=== PATIENT | male | born 1975 | race Caucasian/White ===

== ENCOUNTER 2019-06-06 11:36 | Emergency (ER) | payer OTHER ==
[2019-06-06 12:27] VITALS: BP 143/79; PULSE 76; TEMP 98.7; BMI 56.6
[2019-06-06] MEDS ORDERED: IBUPROFEN 600 MG TABLET (FP) PO ONE ×2 (12:34→12:38)
--- NOTE | 2019-06-06 13:43 | PDOC ---
History of Present Illness - General Chief Complaint: Pain Stated Complaint: LT FOOT PAIN Time Seen by Provider: 06/06/19 11:59 History Source: Patient Exam Limitations: No Limitations - History of Present Illness Initial Comments: 06/06/19 13:43 43 yo M w/ a h/o HLD, BPH, GERD comes in c/o 2 days of left heel pain. Nothing makes the pain better, it is worse with ambulation. Denies trauma/fall. He says that he has been wearing new shoes recently. No ankle/knee pain, no other complaints today. Pt has not taken any pain meds. Past History - Past Medical History Allergies/Adverse Reactions: Allergies Allergy/AdvReac Type Severity Reaction Status Date / Time No Known Allergies Allergy Verified 06/06/19 11:50 Home Medications: Ambulatory Orders Ibuprofen 600 mg PO TID 3 Days #15 tablet 06/06/19 COPD: No - Suicide/Smoking/Psychosocial Hx Smoking History: Unknown if ever smoked Have you smoked in the past 12 months: No Information on smoking cessation initiated: No Hx Alcohol Use: No Drug/Substance Use Hx: No Review of Systems - Review of Systems Able to Perform ROS?: Yes Constitutional: No: Chills, Fever, Malaise, Night Sweats HEENTM: No: Eye Pain, Recent change in vision, Throat Pain Respiratory: No: Cough, Shortness of Breath Cardiac (ROS): No: Chest Pain, Palpitations, Chest Tightness ABD/GI: No: Diarrhea, Nausea, Vomiting, Abdominal cramping : No: Dysuria, Hematuria Musculoskeletal: No: Back Pain Integumentary: No: Rash Neurological: No: Headache, Numbness, Dizziness Psychiatric: No: Change in Appetite Endocrine: No: Unexplained Weight Loss *Physical Exam - Vital Signs Last Vital Signs Temp Pulse Resp BP Pulse Ox 98.7 F 76 16 143/79 100 06/06/19 11:36 06/06/19 11:36 06/06/19 11:36 06/06/19 11:36 06/06/19 11:36 - Physical Exam General Appearance: Yes: Nourished. No: Apparent Distress HEENT: positive: HARITHA, Normal Voice. negative: Pale Conjunctivae, Scleral Icterus (R), Scleral Icterus (L) Neck: positive: Supple. negative: Decreased range of motion, Tender midline Respiratory/Chest: negative: Respiratory Distress, Accessory Muscle Use Cardiovascular: positive: Regular Rate Musculoskeletal: positive: Normal Inspection. negative: Decreased Range of Motion Extremity: positive: Normal Capillary Refill, Normal Inspection, Normal Range of Motion, Other (L foot with tenderness on palpation of the heel, no skin changes, no achilles tendon tenderness, good pulses, good cap refill. L ankle and toes/knee unremarkable with FROM and 5/5 strength, negative ernee test). negative: Pedal Edema Integumentary: positive: Normal Color, Dry. negative: Jaundice, Rash Neurologic: positive: Fully Oriented, Alert, Normal Mood/Affect ED Treatment Course - RADIOLOGY Radiology Studies Ordered: Category Date Time Status FOOT-LEFT [RAD] Stat Radiology 06/06/19 12:35 Taken - Medications Given in the ED: ED Medications Discontinued Medications Generic Name Dose Route Start Last Admin Trade Name Freq PRN Reason Stop Dose Admin Ibuprofen 600 mg 06/06/19 12:34 06/06/19 12:41 Motrin - PO 06/06/19 12:35 600 mg ONCE ONE Administration Medical Decision Making - Medical Decision Making 06/06/19 13:51 43 yo M w/ heel pain, likely heel spur/plantar fasciitis. Xray shows arthritis changes, will discharge with ibuprofen, Podiatry follow up and instructions to stop wearing new shoes. Return for worsening/concerning symptoms Pt verbalizes understanding and agrees with plan. *DC/Admit/Observation/Transfer Diagnosis at time of Disposition: Arthritis of foot, left, Plantar fasciitis, left Heel spur Qualifiers: Laterality: left Qualified Code(s): M77.32 - Calcaneal spur, left foot - Discharge Dispostion Disposition: HOME Condition at time of disposition: Stable - Prescriptions Prescriptions: Ibuprofen 600 mg PO TID 3 Days #15 tablet - Referrals Referrals: Luba Ortega MD [Primary Care Provider] - Ana Mack DPM [Staff Physician] - Rufus Chu MD [Staff Physician] - Nato Beltre MD [Staff Physician] - - Patient Instructions Printed Discharge Instructions: DI for Plantar Fasciitis Additional Instructions: Please make an appointment with one of the three Podiatrists provided and your PCP. Do not wear these new shoes and do some plantar fasciitis exercises which you can find on the internet. - Post Discharge Activity Forms/Work/School Notes: Parent(s) Back to Work Note
== END 2019-06-06 14:10 | disposition home or self-care (01) ==
LOC: JERFT 11:36
DX: M72.2 Plantar fascial fibromatosis (principal); M13.872 Other specified arthritis, left ankle and foot
CPT/HCPCS: 73630-TC-LT; 99281-25